=== PATIENT | female | born 1970 | race Caucasian/White ===

== ENCOUNTER 2020-10-14 08:23 | Day surgery (SDC) | payer OTHER ==
[~2020-10-14] VITALS: Ht 162.6 cm; Wt 102.0 kg
[~2020-10-14 08:23] MED LIST: MELO7.5 PO; ZOLP10 PO
--- NOTE | 2020-10-14 10:14 | NUR ---
10/14/20 1013 Shakila Genao V PT STATES SHE IS COMFORTABLE AND DOES NOT NEED ANYTHING AT THIS TIME. CALL LIGHT IS STILL WITHIN REACH.
--- NOTE | 2020-10-14 13:01 | NUR ---
10/14/20 1301 Fadi,Anabella REQUEST A DOCTORS NOTE FOR WORK. DR. DIXON'S OFFICE CALLED AND THEY WILL PREPARE THIS. DENIES PAIN OR NAUSEA. VSS. DRESSING CDI. DC TEACHING DONE. DC HOME WITH ALL BELONGINGS, IS AND POLAR PACK. DC INSTRUCTIONS REPEATED TO GRABIEL FLOWERS AT THE CAR. INFORMED HER TO CALL DR. DIXON OFFICE TO SEE IF DOCTORS NOTE IS AVAILABLE FOR PICKUP.
== END 2020-10-14 12:56 | disposition home or self-care (01) ==
LOC: ORSCSDS 08:23
PROVIDERS: Orthopaedic Surgery
PROC: 0RNK4ZZ Release Left Shoulder Joint, Percutaneous Endoscopic Approach (ICD-10-PCS; principal; 2020-10-14 10:00)
PROC: 0LS44ZZ Reposition Left Upper Arm Tendon, Percutaneous Endoscopic Approach (ICD-10-PCS; principal; 2020-10-14 10:00)
PROC: 0RBK4ZZ Excision of Left Shoulder Joint, Percutaneous Endoscopic Approach (ICD-10-PCS; principal; 2020-10-14 10:00)
PROC: 0LU24KZ Supplement Left Shoulder Tendon with Nonautologous Tissue Substitute, Percutaneous Endoscopic Approach (ICD-10-PCS; principal; 2020-10-14 10:00)
PROC: 0LQ24ZZ Repair Left Shoulder Tendon, Percutaneous Endoscopic Approach (ICD-10-PCS; principal; 2020-10-14 10:00)
DX: M75.112 Incomplete rotator cuff tear or rupture of left shoulder, not specified as traumatic (principal); M75.22 Bicipital tendinitis, left shoulder; M75.42 Impingement syndrome of left shoulder; M19.012 Primary osteoarthritis, left shoulder; I10 Essential (primary) hypertension; Z79.899 Other long term (current) drug therapy
CPT/HCPCS: A9270; C1713; J0171; J0690; J1100; J2250; J2370; J2405; J2704; J2710; J3010; J7120

== ENCOUNTER → 2020-12-24 | Outpatient (CLI) | payer OTHER ==
[~2020-12-24] MED LIST changes: +CYCL10 PO; +IBUP600 PO; +KETO10 PO; +Neurontin 300300 MG PO
[2020-12-27 09:09] LABS: CHLAMYDIA BY NAA Negative (Negative); GONOCOCCUS BY NAA Negative (Negative); TRICH VAG BY NAA Negative (Negative)
[2020-12-28 16:10] LABS: HPV 16 Negative (Negative); HPV 18 Negative (Negative); HPV OTHER HR TYPES Negative (Negative)
== END | disposition home or self-care (01) ==
LOC: LAB SHORT 13:05 → LAB UCHC 13:05
PROVIDERS: Family Medicine
DX: Z12.4 Encounter for screening for malignant neoplasm of cervix (principal)
CPT/HCPCS: 87491; 87591; 87624; 87661; G0123

== ENCOUNTER 2021-02-12 10:26 | Emergency (ER) | payer OTHER ==
[~2021-02-12] VITALS: Ht 162.6 cm; Wt 99.8 kg
[~2021-02-12 10:26] MED LIST changes: -CYCL10 PO; -IBUP600 PO; -KETO10 PO; -Neurontin 300300 MG PO
[2021-02-12] MEDS ORDERED: KETO10 PO (13:17)
[2021-02-12] MEDS ORDERED: Neurontin 300300 MG PO (13:17)
== END 2021-02-12 13:26 | disposition home or self-care (01) ==
LOC: ER 10:26
DX: G56.01 Carpal tunnel syndrome, right upper limb (principal); Z87.891 Personal history of nicotine dependence
CPT/HCPCS: 29125; 73120; 96372-59; 99283-25; A9270; J1885

== ENCOUNTER 2021-04-05 18:16 | Emergency (ER) | payer OTHER ==
[~2021-04-05] VITALS: Ht 162.6 cm; Wt 99.8 kg
[~2021-04-05 18:16] MED LIST changes: +KETO10 PO; +Neurontin 300300 MG PO
[2021-04-05] MEDS ORDERED: IBUP600 PO (20:42)
[2021-04-05] MEDS ORDERED: CYCL10 PO (20:42)
== END 2021-04-06 00:09 | disposition home or self-care (01) ==
LOC: ER 18:16
DX: S39.012A Strain of muscle, fascia and tendon of lower back, initial encounter (principal); Z87.891 Personal history of nicotine dependence; X50.1XXA Overexertion from prolonged static or awkward postures, initial encounter
CPT/HCPCS: 72100; 72131; 96374; 96375; 99284-25; A9270; J1885; J3010

== ENCOUNTER 2021-07-07 07:16 | Day surgery (SDC) | payer OTHER ==
[~2021-07-07] VITALS: Ht 160 cm; Wt 98.6 kg
[~2021-07-07 07:16] MED LIST changes: +CYCL10 PO; +IBUP600 PO
[2021-07-07] MEDS ORDERED: ZOLPIDEM TARTRA10 MG PO (08:02)
[2021-07-07] MEDS ORDERED: MELO7.5 (08:03)
[2021-07-07] MEDS ORDERED: TIZANIDINE HCL PO (08:04)
[2021-07-07] MEDS ORDERED: CYCLOBENZAPRINE 10 MG (08:05)
[2021-07-07] MEDS ORDERED: NEURONTIN300 MG PO (08:05)
--- NOTE | 2021-07-07 10:22 | NUR ---
07/07/21 1022 NEYMAR EASTON CONTINUED DRESSING BUT MULTIPLE SITES COVERED. ELBOW AND WRIST WORK DONE TODAY.
== END 2021-07-07 10:20 | disposition home or self-care (01) ==
LOC: ORSCSDS 07:16
PROVIDERS: Orthopaedic Surgery
PROC: 01S40ZZ Reposition Ulnar Nerve, Open Approach (ICD-10-PCS; principal; 2021-07-07 08:30)
DX: G56.22 Lesion of ulnar nerve, left upper limb (principal); I10 Essential (primary) hypertension; E66.01 Morbid (severe) obesity due to excess calories; Z68.37 Body mass index [BMI] 37.0-37.9, adult; Z79.899 Other long term (current) drug therapy
CPT/HCPCS: J0690; J1100; J1885; J2250; J2405; J2704; J2795; J3010; J7120

== ENCOUNTER → 2021-09-29 | Outpatient (CLI) | payer OTHER ==
[~2021-09-29] MED LIST changes: +CYCLOBENZAPRINE 10 MG; +MELO7.5; +NEURONTIN300 MG PO; +TIZANIDINE HCL PO; +ZOLPIDEM TARTRA10 MG PO
[2021-09-29 19:15] LABS: BASOPHILS ABSOLUTE AUTO 0.05 K/mm3 (0.00-0.23); BASOPHILS PERCENT AUTO 1 % (0-2); EOSINOPHILS ABSOLUTE AUTO 0.08 K/mm3 (0.00-0.68); EOSINOPHILS PERCENT AUTO 1 % (0-6); Hematocrit 35.8 % (33.0-51.0); Hemoglobin 11.8 g/dL (11.5-16.0); IMMATURE GRAN ABSOLUTE AUTO 0.01 K/mm3 (0.00-0.10); IMMATURE GRAN PERCENT AUTO 0 % (0-1); LYMPHOCYTES ABSOLUTE AUTO 1.87 K/mm3 (0.84-5.20); LYMPHOCYTES PERCENT AUTO 21 % (21-46); MONOCYTES ABSOLUTE AUTO 1.06 K/mm3 (0.16-1.47); MONOCYTES PERCENT AUTO 12 % (4-13); Mean Corpuscular HGB 28.2 pg (26.0-34.0); Mean Corpuscular Volume 86 fL (80-100); NEUTROPHILS ABSOLUTE AUTO 5.69 K/mm3 (1.96-9.15); NEUTROPHILS PERCENT AUTO 65 % (41-73); Platelet Count 366 K/mm3 (150-400); RDW Coefficient Variation 14.3 % (11.7-14.2); RDW Standard Deviation 44.8 fL (35.1-46.3); Red Blood Cell Count 4.18 M/mm3 (3.80-5.20); White Blood Cell Count 8.76 K/mm3 (4.00-11.30)
[2021-09-29 19:37] LABS: Alanine Aminotransfer (ALT/SGP 16 U/L (12-78); Albumin, Blood 3.5 g/dL (3.4-5.0); Albumin/Globulin Ratio 0.8 (0.8-1.8); Alk Phos 91 U/L (50-136); Anion Gap 6 mmol/L (6-16); Aspartate Aminotrans (AST/SGOT 11 U/L (12-37); Bilirubin, Total 0.7 mg/dL (0.1-1.0); Blood Urea Nitrogen 13 mg/dL (8-24); Bun/Creatinine Ratio 19.5 (12.0-20.0); CO2, Blood 24 mmol/L (21-32); Chloride, Blood 107 mmol/L (98-108); Creatinine, Blood 0.67 mg/dL (0.40-1.00); Globulin, Blood 4.2 g/dL (2.2-4.0); Glomerular Filtration Rate >60 (60-); Glucose, Blood 90 mg/dL (70-99); Potassium, Blood 3.9 mmol/L (3.5-5.5); Sodium, Blood 137 mmol/L (136-145); Total Protein, Blood 7.7 g/dL (6.4-8.2)
== END | disposition home or self-care (01) ==
LOC: LAB SHORT 17:47
PROVIDERS: Nurse Practitioner Family
DX: Z13.29 Encounter for screening for other suspected endocrine disorder (principal); R07.89 Other chest pain; R10.9 Unspecified abdominal pain
CPT/HCPCS: 80053; 84443; 85025; 87086

== ENCOUNTER 2021-12-19 21:10 | Emergency (ER) | payer OTHER ==
[~2021-12-19] VITALS: Ht 162.6 cm; Wt 99.8 kg
[2021-12-19] MEDS ORDERED: Prinivil10 MG PO (23:04)
[2021-12-19] MEDS ORDERED: LIDO700A20 TOP (23:46)
== END 2021-12-20 00:05 | disposition home or self-care (01) ==
LOC: ER 21:10
DX: S29.012A Strain of muscle and tendon of back wall of thorax, initial encounter (principal); Z87.891 Personal history of nicotine dependence; X58.XXXA Exposure to other specified factors, initial encounter
CPT/HCPCS: 96374; 99283-25; J1885

== ENCOUNTER 2022-01-23 23:38 | Emergency (ER) | payer OTHER ==
[~2022-01-23] VITALS: Ht 162.6 cm; Wt 99.8 kg
[~2022-01-23 23:38] MED LIST changes: +LIDO700A20 TOP; +Prinivil10 MG PO
[2022-01-24] MEDS ORDERED: Prednisone20 MG PO (07:04)
[2022-01-24] MEDS ORDERED: Roxicodone5 MG PO (07:05)
== END 2022-01-24 00:30 | disposition home or self-care (01) ==
LOC: ER 23:38
DX: G56.01 Carpal tunnel syndrome, right upper limb (principal); Z98.890 Other specified postprocedural states
CPT/HCPCS: 29125; 99282-25; A9270

== ENCOUNTER 2022-01-24 05:10 | Emergency (ER) | payer OTHER ==
[~2022-01-24] VITALS: Ht 165.1 cm; Wt 90.7 kg
[2022-01-24] MEDS ORDERED: Prednisone20 MG PO (07:04)
[2022-01-24] MEDS ORDERED: Roxicodone5 MG PO (07:05)
== END 2022-01-24 07:43 | disposition home or self-care (01) ==
LOC: ER 05:10
DX: G56.01 Carpal tunnel syndrome, right upper limb (principal); I10 Essential (primary) hypertension; Z79.899 Other long term (current) drug therapy
CPT/HCPCS: 99282; A9270; J7512

== ENCOUNTER 2022-06-15 22:45 | Emergency (ER) | payer OTHER ==
[~2022-06-15] VITALS: Ht 162.6 cm; Wt 97.4 kg
[~2022-06-15 22:45] MED LIST changes: +Prednisone20 MG PO; +Roxicodone5 MG PO
[2022-06-16] MEDS ORDERED: ZOLPIDEM TARTRA10 MG PO (00:29)
[2022-06-16] MEDS ORDERED: MELO7.5 PO (00:29)
[2022-06-16] MEDS ORDERED: LISI20 PO (00:29)
== END 2022-06-16 00:55 | disposition home or self-care (01) ==
LOC: ER 22:45
DX: G56.01 Carpal tunnel syndrome, right upper limb (principal); I10 Essential (primary) hypertension; Z79.899 Other long term (current) drug therapy; Z79.52 Long term (current) use of systemic steroids; Z98.890 Other specified postprocedural states
CPT/HCPCS: 96372; 99283-25; J1885

== ENCOUNTER 2022-08-15 06:12 | Day surgery (SDC) | payer OTHER ==
[~2022-08-15] VITALS: Ht 162.6 cm; Wt 100.4 kg
[~2022-08-15 06:12] MED LIST changes: +LISI20 PO
== END 2022-08-15 09:12 | disposition home or self-care (01) ==
LOC: ORSCSDS 06:12
PROVIDERS: Orthopaedic Surgery
PROC: 01S40ZZ Reposition Ulnar Nerve, Open Approach (ICD-10-PCS; principal; 2022-08-15 07:30)
PROC: 01N50ZZ Release Median Nerve, Open Approach (ICD-10-PCS; principal; 2022-08-15 07:30)
DX: G56.01 Carpal tunnel syndrome, right upper limb (principal); G56.21 Lesion of ulnar nerve, right upper limb; I10 Essential (primary) hypertension; Z87.891 Personal history of nicotine dependence; Z79.899 Other long term (current) drug therapy
CPT/HCPCS: J0690; J1100; J1885; J2250; J2405; J2704; J2795; J3010; J7120

== ENCOUNTER → 2022-09-14 | Outpatient (CLI) | payer OTHER | LOC: LAB SHORT 12:02 → LAB 12:02 | DX: T81.44XA Sepsis following a procedure, initial encounter (principal) | CPT/HCPCS: 87070; 87075; 87205 ==

== ENCOUNTER 2022-09-27 01:18 | Day surgery (SDC) | payer OTHER | END 2022-09-28 00:03 | disposition home or self-care (01) | LOC: WOUND 01:18 | DX: T81.31XA Disruption of external operation (surgical) wound, not elsewhere classified, initial encounter (principal); G56.11 Other lesions of median nerve, right upper limb; I10 Essential (primary) hypertension | CPT/HCPCS: A9270; G0463 ==

== ENCOUNTER 2022-10-04 00:59 | Day surgery (SDC) | payer OTHER | END 2022-10-04 22:44 | disposition home or self-care (01) | LOC: WOUND 00:59 | DX: G56.11 Other lesions of median nerve, right upper limb (principal); I10 Essential (primary) hypertension; T81.31XD Disruption of external operation (surgical) wound, not elsewhere classified, subsequent encounter | CPT/HCPCS: G0463 ==

== ENCOUNTER 2022-10-11 00:34 | Day surgery (SDC) | payer OTHER | END 2022-10-11 23:14 | disposition home or self-care (01) | LOC: WOUND 00:34 | DX: T81.89XA Other complications of procedures, not elsewhere classified, initial encounter (principal); G56.11 Other lesions of median nerve, right upper limb; I10 Essential (primary) hypertension | CPT/HCPCS: A9270; G0463 ==

== ENCOUNTER → 2022-10-12 | Outpatient (CLI) | payer OTHER ==
[2022-10-12 17:10] LABS: Percent Saturation 19.9 % (15.0-50.0)
== END | disposition home or self-care (01) ==
LOC: LAB SHORT 11:44
PROVIDERS: Nurse Practitioner Family
DX: G25.81 Restless legs syndrome (principal)
CPT/HCPCS: 82607; 82728; 82746; 83540; 83550

== ENCOUNTER 2022-10-18 03:49 | Day surgery (SDC) | payer OTHER | END 2022-10-18 23:09 | disposition home or self-care (01) | LOC: WOUND 03:49 | PROC: 0WCJ0ZZ Extirpation of Matter from Pelvic Cavity, Open Approach (ICD-10-PCS; principal; 2022-10-18) | DX: T81.30XA Disruption of wound, unspecified, initial encounter (principal); S51.001A Unspecified open wound of right elbow, initial encounter; I10 Essential (primary) hypertension; G56.11 Other lesions of median nerve, right upper limb | CPT/HCPCS: A9270; G0463 ==

== ENCOUNTER 2022-10-25 05:22 | Day surgery (SDC) | payer OTHER | END 2022-10-25 23:06 | disposition home or self-care (01) | LOC: WOUND 05:22 | DX: T81.31XA Disruption of external operation (surgical) wound, not elsewhere classified, initial encounter (principal); G56.11 Other lesions of median nerve, right upper limb; I10 Essential (primary) hypertension; S51.001A Unspecified open wound of right elbow, initial encounter | CPT/HCPCS: G0463 ==

== ENCOUNTER 2022-11-01 01:35 | Day surgery (SDC) | payer OTHER | END 2022-11-01 22:56 | disposition home or self-care (01) | LOC: WOUND 01:35 | DX: T81.31XA Disruption of external operation (surgical) wound, not elsewhere classified, initial encounter (principal); I10 Essential (primary) hypertension | CPT/HCPCS: A9270; G0463 ==

== ENCOUNTER 2022-11-08 00:20 | Day surgery (SDC) | payer OTHER | END 2022-11-08 23:39 | disposition home or self-care (01) | LOC: WOUND 00:20 | DX: T81.31XA Disruption of external operation (surgical) wound, not elsewhere classified, initial encounter (principal); G56.11 Other lesions of median nerve, right upper limb; I10 Essential (primary) hypertension; S51.001D Unspecified open wound of right elbow, subsequent encounter | CPT/HCPCS: A9270; G0463 ==

== ENCOUNTER 2022-11-22 08:00 | Day surgery (SDC) | payer OTHER | END 2022-11-22 23:59 | disposition home or self-care (01) | LOC: WOUND 08:00 | DX: T81.32XA Disruption of internal operation (surgical) wound, not elsewhere classified, initial encounter (principal); G56.11 Other lesions of median nerve, right upper limb; I10 Essential (primary) hypertension | CPT/HCPCS: G0463 ==

== ENCOUNTER 2022-12-07 01:39 | Day surgery (SDC) | payer OTHER | END 2022-12-07 22:48 | disposition home or self-care (01) | LOC: WOUND 01:39 | DX: G56.11 Other lesions of median nerve, right upper limb (principal); T81.31XD Disruption of external operation (surgical) wound, not elsewhere classified, subsequent encounter; I10 Essential (primary) hypertension | CPT/HCPCS: G0463 ==

== ENCOUNTER 2023-05-21 08:09 | Day surgery (SDC) | payer OTHER ==
[~2023-05-21] VITALS: Ht 162.6 cm; Wt 99.8 kg
--- NOTE | 2023-05-21 10:25 | NUR ---
05/21/23 Calista5 Fatoumata Liu 20ML OF ROPIVACAINE 0.5% MIXED AND VERIFIED WITH 0.1ML OF EPI (1MG/ML) TO MAKE ROPIVACAINE 0.5% WITH EPI 1:200,000 FOR [facility]JECTION AT [facility] BY DR MOELLER.
--- NOTE | 2023-05-21 11:03 | NUR ---
05/21/23 1103 NEYMAR EASTON PT SLEEPY/SHALLOW BREATHS ON ADMIT TO PACU. O2 @ 10L VIA FACE TENT- O2 DIPPED TO 91%. CURRENTLY 100% ON 10L. WILL DECREASE TO 5L "TRIAL" PT CURENTLY SLEEPING/SNORING. SOME POSSIBLE RONCHI INITIALLY. PT WAS ABLE TO COUGH W/O DIFF. THIS DID NOT GET RID OF SOUND. WILL LISTEN AGAIN TO LUNGS IN SDU.
--- NOTE | 2023-05-21 11:26 | NUR ---
05/21/23 1126 NEYMAR EASTON STARTED FOR WHEEZING. PT STATES PAIN IS CLIMBING. 01/15. WILLL GIVE SOMETHING IV WELL PO MED.
[2023-05-21 11:49] VITALS: BP 115/70
== END 2023-05-21 12:08 | disposition home or self-care (01) ==
LOC: ORSCSDS 08:09
PROVIDERS: Orthopaedic Surgery
PROC: 0QP104Z Removal of Internal Fixation Device from Sacrum, Open Approach (ICD-10-PCS; principal; 2023-05-21 10:00)
DX: T84.84XA Pain due to internal orthopedic prosthetic devices, implants and grafts, initial encounter (principal); I10 Essential (primary) hypertension; E66.9 Obesity, unspecified; Z68.37 Body mass index [BMI] 37.0-37.9, adult; Z79.899 Other long term (current) drug therapy
CPT/HCPCS: A9270; J0171; J0690; J1885; J2250; J2704; J2795; J3010; J3370; J7120

== ENCOUNTER → 2023-08-10 | Outpatient (CLI) | payer OTHER ==
[2023-08-10 19:30] LABS: BASOPHILS ABSOLUTE AUTO 0.04 K/mm3 (0.00-0.23); BASOPHILS PERCENT AUTO 1 % (0-2); EOSINOPHILS ABSOLUTE AUTO 0.13 K/mm3 (0.00-0.68); EOSINOPHILS PERCENT AUTO 2 % (0-6); Hematocrit 39.4 % (33.0-51.0); Hemoglobin 13.5 g/dL (11.5-16.0); IMMATURE GRAN ABSOLUTE AUTO 0.01 K/mm3 (0.00-0.10); IMMATURE GRAN PERCENT AUTO 0 % (0-1); LYMPHOCYTES PERCENT AUTO 28 % (21-46); MONOCYTES ABSOLUTE AUTO 0.89 K/mm3 (0.16-1.47); MONOCYTES PERCENT AUTO 11 % (4-13); Mean Corpuscular HGB 32.3 pg (26.0-34.0); Mean Corpuscular HGB Conc 34.3 g/dL (31.5-36.5); Mean Corpuscular Volume 94 fL (80-100); Mean Platelet Volume 9.8 fL (9.1-12.4); NEUTROPHILS ABSOLUTE AUTO 4.66 K/mm3 (1.96-9.15); NEUTROPHILS PERCENT AUTO 59 % (41-73); Platelet Count 257 K/mm3 (150-400); RDW Standard Deviation 44.8 fL (35.1-46.3); Red Blood Cell Count 4.18 M/mm3 (3.80-5.20); White Blood Cell Count 7.93 K/mm3 (4.00-11.30)
[2023-08-10 20:17] LABS: Anion Gap 4 mmol/L (6-16); Blood Urea Nitrogen 16 mg/dL (8-24); Bun/Creatinine Ratio 19.3 (12.0-20.0); CO2, Blood 29 mmol/L (21-32); Calcium, Blood 9.3 mg/dL (8.5-10.1); Chloride, Blood 108 mmol/L (98-108); Cholesterol 162 mg/dL (50-200); Creatinine, Blood 0.83 mg/dL (0.40-1.00); Glomerular Filtration Rate 85 (60-); Glucose, Blood 96 mg/dL (70-99); HDL Cholesterol 54 mg/dL (>39); LDL/HDL RATIO 1.5; Low Density Lipoprotein Chol 81 mg/dL (0-110); Potassium, Blood 3.8 mmol/L (3.5-5.5); Sodium, Blood 141 mmol/L (136-145); Triglycerides 135 mg/dL (30-160); Very Low Density Lipoprot Chol 27 mg/dL (6-32)
== END | disposition home or self-care (01) ==
LOC: LAB SHORT 18:51 → LAB 18:51
PROVIDERS: Nurse Practitioner Family
DX: E78.5 Hyperlipidemia, unspecified (principal); I10 Essential (primary) hypertension; R73.03 Prediabetes
CPT/HCPCS: 80048; 80061; 83036; 85025

== ENCOUNTER 2024-01-25 14:19 | Emergency (ER) | payer OTHER ==
[~2024-01-25] VITALS: Ht 162.6 cm; Wt 95.2 kg
[2024-01-25 14:30] VITALS: BP 135/108
== END 2024-01-25 15:50 | disposition home or self-care (01) ==
LOC: ER 14:19
DX: S63.613A Unspecified sprain of left middle finger, initial encounter (principal); Z87.891 Personal history of nicotine dependence; I10 Essential (primary) hypertension; Z79.899 Other long term (current) drug therapy; W01.0XXA Fall on same level from slipping, tripping and stumbling without subsequent striking against object, initial encounter
CPT/HCPCS: 73130; 99283-25

== ENCOUNTER → 2024-02-12 | Outpatient (CLI) | payer OTHER ==
[2024-02-12 15:29] LABS: BASOPHILS ABSOLUTE AUTO 0.04 K/mm3 (0.00-0.23); BASOPHILS PERCENT AUTO 1 % (0-2); EOSINOPHILS ABSOLUTE AUTO 0.14 K/mm3 (0.00-0.68); EOSINOPHILS PERCENT AUTO 2 % (0-6); Hematocrit 40.6 % (33.0-51.0); IMMATURE GRAN ABSOLUTE AUTO 0.02 K/mm3 (0.00-0.10); IMMATURE GRAN PERCENT AUTO 0 % (0-1); LYMPHOCYTES ABSOLUTE AUTO 1.65 K/mm3 (0.84-5.20); LYMPHOCYTES PERCENT AUTO 20 % (21-46); MONOCYTES ABSOLUTE AUTO 0.78 K/mm3 (0.16-1.47); MONOCYTES PERCENT AUTO 9 % (4-13); Mean Corpuscular HGB 31.8 pg (26.0-34.0); Mean Corpuscular HGB Conc 34.5 g/dL (31.5-36.5); Mean Corpuscular Volume 92 fL (80-100); Mean Platelet Volume 9.8 fL (9.1-12.4); NEUTROPHILS ABSOLUTE AUTO 5.83 K/mm3 (1.96-9.15); NEUTROPHILS PERCENT AUTO 69 % (41-73); Platelet Count 288 K/mm3 (150-400); RDW Coefficient Variation 13.2 % (11.7-14.2); RDW Standard Deviation 44.6 fL (35.1-46.3); White Blood Cell Count 8.46 K/mm3 (4.00-11.30)
[2024-02-12 16:46] LABS: Albumin, Blood 3.6 g/dL (3.4-5.0); Albumin/Globulin Ratio 0.9 (0.8-1.8); Bilirubin, Total 0.7 mg/dL (0.1-1.0); Bun/Creatinine Ratio 28.2 (12.0-20.0); Calcium, Blood 9.3 mg/dL (8.5-10.1); Creatinine, Blood 0.64 mg/dL (0.40-1.00); Globulin, Blood 4.1 g/dL (2.2-4.0); Potassium, Blood 4.4 mmol/L (3.5-5.5); Total Protein, Blood 7.7 g/dL (6.4-8.2)
== END | disposition home or self-care (01) ==
LOC: LAB SHORT 11:27 → LAB 11:27
PROVIDERS: Nurse Practitioner Family
DX: I10 Essential (primary) hypertension (principal)
CPT/HCPCS: 80053; 85025

== ENCOUNTER → 2024-03-19 | Outpatient (CLI) | payer OTHER ==
[2024-03-19 18:19] LABS: Bun/Creatinine Ratio 32.5 (12.0-20.0); Calcium, Blood 9.5 mg/dL (8.5-10.1); Creatinine, Blood 0.89 mg/dL (0.40-1.00); Potassium, Blood 4.1 mmol/L (3.5-5.5)
== END ==
LOC: LAB SHORT 15:09 → LAB 15:09
PROVIDERS: Nurse Practitioner Family
DX: I10 Essential (primary) hypertension (principal)
CPT/HCPCS: 80048

== ENCOUNTER 2024-03-29 11:07 | Emergency (ER) | payer OTHER ==
[~2024-03-29] VITALS: Ht 162.6 cm; Wt 93.4 kg
[2024-03-29 11:43] VITALS: BP 130/90
[2024-03-29] MEDS ORDERED: HYDROcodone 5-APAP 325 TAB PO ONE (12:55)
[2024-03-29] MEDS ORDERED: Ketorolac Tromethamine 30mg Vial IM ONE (12:55)
== END 2024-03-29 14:45 | disposition home or self-care (01) ==
LOC: ER 11:07
DX: M79.672 Pain in left foot (principal); I10 Essential (primary) hypertension; Z79.899 Other long term (current) drug therapy; Z87.891 Personal history of nicotine dependence
CPT/HCPCS: 73630; 96372; 99283-25; A9270; J1885

== ENCOUNTER → 2024-07-01 | Outpatient (CLI) | payer OTHER ==
[2024-07-02 12:51] LABS: Rheumatoid Factor, Serum Positive (Negative)
[2024-07-02 12:52] LABS: RA, SEMIQUANTITATIVE 128 IU/ml (<8)
[2024-07-03 06:01] LABS: ANTI-NUCLEAR AB ANA,IGG ELISA None Detected (None Detected)
== END | disposition home or self-care (01) ==
LOC: LAB SHORT 16:05 → LAB 16:05
PROVIDERS: Nurse Practitioner Family
DX: M25.50 Pain in unspecified joint (principal)
CPT/HCPCS: 86038; 86430; 86431

== ENCOUNTER → 2024-07-08 | Outpatient (CLI) | payer OTHER ==
[2024-07-08 22:25] LABS: CHOL/HDL RATIO 2.6; Cholesterol 157 mg/dL (50-200); HDL Cholesterol 61 mg/dL (>39); LDL/HDL RATIO 0.9; Low Density Lipoprotein Chol 54 mg/dL (0-110); Triglycerides 208 mg/dL (30-160); Very Low Density Lipoprot Chol 42 mg/dL (6-32)
== END | disposition home or self-care (01) ==
LOC: LAB SHORT 12:57 → LAB 12:57
PROVIDERS: Nurse Practitioner Family
DX: E78.5 Hyperlipidemia, unspecified (principal)
CPT/HCPCS: 80061

== ENCOUNTER → 2024-10-02 | Outpatient (CLI) | payer OTHER ==
[2024-10-02 14:55] LABS: BASOPHILS ABSOLUTE AUTO 0.04 K/mm3 (0.00-0.23); BASOPHILS PERCENT AUTO 0 % (0-2); EOSINOPHILS PERCENT AUTO 1 % (0-6); Hematocrit 38.9 % (33.0-51.0); Hemoglobin 13.4 g/dL (11.5-16.0); IMMATURE GRAN ABSOLUTE AUTO 0.03 K/mm3 (0.00-0.10); IMMATURE GRAN PERCENT AUTO 0 % (0-1); LYMPHOCYTES ABSOLUTE AUTO 2.77 K/mm3 (0.84-5.20); LYMPHOCYTES PERCENT AUTO 29 % (21-46); MONOCYTES ABSOLUTE AUTO 0.98 K/mm3 (0.16-1.47); MONOCYTES PERCENT AUTO 10 % (4-13); Mean Corpuscular HGB 33.3 pg (26.0-34.0); Mean Corpuscular HGB Conc 34.4 g/dL (31.5-36.5); Mean Corpuscular Volume 97 fL (80-100); Mean Platelet Volume 9.2 fL (9.1-12.4); NEUTROPHILS ABSOLUTE AUTO 5.72 K/mm3 (1.96-9.15); NEUTROPHILS PERCENT AUTO 59 % (41-73); Platelet Count 289 K/mm3 (150-400); RDW Coefficient Variation 14.6 % (11.7-14.2); RDW Standard Deviation 50.6 fL (35.1-46.3); Red Blood Cell Count 4.02 M/mm3 (3.80-5.20); White Blood Cell Count 9.64 K/mm3 (4.00-11.30)
[2024-10-02 15:31] LABS: Albumin, Blood 3.6 g/dL (3.4-5.0); Bilirubin, Total 0.5 mg/dL (0.1-1.0); Bun/Creatinine Ratio 31.2 (12.0-20.0); Calcium, Blood 9.4 mg/dL (8.5-10.1); Creatinine, Blood 0.74 mg/dL (0.40-1.00); Globulin, Blood 3.6 g/dL (2.2-4.0); Potassium, Blood 3.7 mmol/L (3.5-5.5); Total Protein, Blood 7.2 g/dL (6.4-8.2)
== END ==
LOC: LAB 13:13 → LAB SHORT 13:13
PROVIDERS: Internal Medicine Rheumatology
DX: M05.79 Rheumatoid arthritis with rheumatoid factor of multiple sites without organ or systems involvement (principal)
CPT/HCPCS: 80053; 85025; 85651

== ENCOUNTER → 2024-12-25 | Outpatient (CLI) | payer OTHER ==
[2024-12-25 19:18] LABS: BASOPHILS ABSOLUTE AUTO 0.05 K/mm3 (0.00-0.23); BASOPHILS PERCENT AUTO 1 % (0-2); EOSINOPHILS ABSOLUTE AUTO 0.12 K/mm3 (0.00-0.68); EOSINOPHILS PERCENT AUTO 1 % (0-6); Hematocrit 38.8 % (33.0-51.0); Hemoglobin 13.2 g/dL (11.5-16.0); IMMATURE GRAN ABSOLUTE AUTO 0.05 K/mm3 (0.00-0.10); IMMATURE GRAN PERCENT AUTO 1 % (0-1); LYMPHOCYTES ABSOLUTE AUTO 2.38 K/mm3 (0.84-5.20); LYMPHOCYTES PERCENT AUTO 25 % (21-46); MONOCYTES ABSOLUTE AUTO 0.96 K/mm3 (0.16-1.47); MONOCYTES PERCENT AUTO 10 % (4-13); Mean Corpuscular HGB 34.4 pg (26.0-34.0); Mean Corpuscular Volume 101 fL (80-100); Mean Platelet Volume 10.4 fL (9.1-12.4); NEUTROPHILS ABSOLUTE AUTO 6.02 K/mm3 (1.96-9.15); NEUTROPHILS PERCENT AUTO 63 % (41-73); Platelet Count 289 K/mm3 (150-400); RDW Coefficient Variation 13.4 % (11.7-14.2); RDW Standard Deviation 49.1 fL (35.1-46.3); Red Blood Cell Count 3.84 M/mm3 (3.80-5.20); White Blood Cell Count 9.58 K/mm3 (4.00-11.30)
[2024-12-25 20:49] LABS: Albumin, Blood 3.5 g/dL (3.4-5.0); Albumin/Globulin Ratio 1.1 (0.8-1.8); Bilirubin, Total 0.5 mg/dL (0.1-1.0); Bun/Creatinine Ratio 24.6 (12.0-20.0); Calcium, Blood 9.3 mg/dL (8.5-10.1); Creatinine, Blood 0.85 mg/dL (0.40-1.00); Globulin, Blood 3.2 g/dL (2.2-4.0); Potassium, Blood 3.6 mmol/L (3.5-5.5); Total Protein, Blood 6.7 g/dL (6.4-8.2)
== END ==
LOC: LAB 17:52 → LAB SHORT 17:52
PROVIDERS: Internal Medicine Rheumatology
DX: D50.8 Other iron deficiency anemias (principal); D64.9 Anemia, unspecified; M05.79 Rheumatoid arthritis with rheumatoid factor of multiple sites without organ or systems involvement
CPT/HCPCS: 80053; 85025; 85651

== ENCOUNTER → 2025-01-29 | Outpatient (CLI) | payer OTHER ==
[2025-01-29 14:34] LABS: BASOPHILS ABSOLUTE AUTO 0.06 K/mm3 (0.00-0.23); BASOPHILS PERCENT AUTO 1 % (0-2); EOSINOPHILS PERCENT AUTO 1 % (0-6); Hematocrit 39.3 % (33.0-51.0); Hemoglobin 13.6 g/dL (11.5-16.0); IMMATURE GRAN ABSOLUTE AUTO 0.02 K/mm3 (0.00-0.10); IMMATURE GRAN PERCENT AUTO 0 % (0-1); LYMPHOCYTES PERCENT AUTO 28 % (21-46); MONOCYTES ABSOLUTE AUTO 0.98 K/mm3 (0.16-1.47); MONOCYTES PERCENT AUTO 10 % (4-13); Mean Corpuscular HGB 33.9 pg (26.0-34.0); Mean Corpuscular HGB Conc 34.6 g/dL (31.5-36.5); Mean Corpuscular Volume 98 fL (80-100); Mean Platelet Volume 10.3 fL (9.1-12.4); NEUTROPHILS ABSOLUTE AUTO 5.83 K/mm3 (1.96-9.15); NEUTROPHILS PERCENT AUTO 60 % (41-73); Platelet Count 296 K/mm3 (150-400); RDW Coefficient Variation 13.2 % (11.7-14.2); RDW Standard Deviation 46.8 fL (35.1-46.3); Red Blood Cell Count 4.01 M/mm3 (3.80-5.20); White Blood Cell Count 9.69 K/mm3 (4.00-11.30)
[2025-01-29 15:09] LABS: Albumin, Blood 3.5 g/dL (3.4-5.0); Albumin/Globulin Ratio 1.2 (0.8-1.8); Bilirubin, Total 0.4 mg/dL (0.1-1.0); Bun/Creatinine Ratio 24.5 (12.0-20.0); Calcium, Blood 8.9 mg/dL (8.5-10.1); Creatinine, Blood 0.69 mg/dL (0.40-1.00); Globulin, Blood 2.9 g/dL (2.2-4.0); Potassium, Blood 4.2 mmol/L (3.5-5.5); Total Protein, Blood 6.4 g/dL (6.4-8.2)
== END ==
LOC: LAB SHORT 11:07 → LAB 11:07
PROVIDERS: Internal Medicine Rheumatology
DX: M05.79 Rheumatoid arthritis with rheumatoid factor of multiple sites without organ or systems involvement (principal)
CPT/HCPCS: 80053; 85025; 85651

== ENCOUNTER 2025-02-04 08:20 | Day surgery (SDC) | payer OTHER ==
[~2025-02-04] VITALS: Ht 165.1 cm; Wt 88.0 kg
[~2025-02-04 08:20] MED LIST changes: +EPINEPhrine HCl 1 MG/ML 1ML Amp ONE; +Lactated Ringer's 1,000 ML IV ONE; +Lidocaine 1%-Epineph 1:200000 30 ML SDV ONE; +Midazolam HCl 1MG / ML 2ML Vial ONE; +propofoL 20 ML IV ONE
[2025-02-04] MEDS ORDERED: CeFAZolin Sodium 2,000 MG VIAL ONE (08:25)
[2025-02-04] MEDS ORDERED: FentaNYL Citrate 50 MCG/ML 2 ML Injection ONE ×2 (08:28→10:09)
[2025-02-04] MEDS ORDERED: METTREX2.5 PO (08:36)
[2025-02-04] MEDS ORDERED: VENL75ER PO (08:36)
[2025-02-04] MEDS ORDERED: PREDNISONE1 MG PO (08:36)
[2025-02-04] MEDS ORDERED: ATOR10 PO (08:37)
[2025-02-04] MEDS ORDERED: CELE100 PO (08:37)
[2025-02-04] MEDS ORDERED: FOLI1 PO (08:37)
[2025-02-04] MEDS ORDERED: OMEP20ER PO (08:37)
[2025-02-04] MEDS ORDERED: TIZA4 PO (08:38)
[2025-02-04] MEDS ORDERED: Lactated Ringer's 1,000 ML IV ONE (08:58)
--- NOTE | 2025-02-04 09:09 | NUR ---
02/04/25 0909 HERIBERTO GALINDO PT RESTING ON GURNEY, RAILS UP, IN LOW POSITION, BRAKES LOCKED, CALL LIGHT IN REACH, DENIES NEEDS.
[2025-02-04] MEDS ORDERED: Ketorolac Tromethamine 30mg Vial ONE (09:27)
[2025-02-04] MEDS ORDERED: Ondansetron HCl 2 MG / ML 2ML Vial ONE (09:27)
[2025-02-04] MEDS ORDERED: Dexamethasone Sod Phos 10 MG/ML 1ML VIAL ONE (09:27)
--- NOTE | 2025-02-04 10:17 | NUR ---
02/04/25 Bradford Wong FENTANYL 25MCG GIVEN IV AT 1015 FOR 5/10 PAIN TO LEFT KNEE
[2025-02-04 10:42] VITALS: BP 145/86
[2025-02-04] MEDS ORDERED: OxyCODONE HCL 5 MG TAB ONE (10:55)
--- NOTE | 2025-02-04 11:02 | NUR ---
02/04/25 1102 Bradford Mcdaniel OXYCODONE 5MG PO GIVEN AT 1100 FOR 3/10 LEFT KNEE PAIN
== END 2025-02-04 11:35 | disposition home or self-care (01) ==
LOC: ORSCSDS 08:20
PROVIDERS: Orthopaedic Surgery
PROC: 0SBD4ZZ Excision of Left Knee Joint, Percutaneous Endoscopic Approach (ICD-10-PCS; principal; 2025-02-04 09:45)
DX: S83.242A Other tear of medial meniscus, current injury, left knee, initial encounter (principal); E78.5 Hyperlipidemia, unspecified; I10 Essential (primary) hypertension; F41.9 Anxiety disorder, unspecified; Z87.891 Personal history of nicotine dependence; Z79.899 Other long term (current) drug therapy
CPT/HCPCS: A9270; J0171; J0690; J1100; J1885; J2250; J2405; J2704; J3010; J7120

== ENCOUNTER → 2025-07-13 | Outpatient (CLI) | payer OTHER ==
[~2025-07-13] MED LIST changes: +ATOR10 PO; +CELE100 PO; -EPINEPhrine HCl 1 MG/ML 1ML Amp ONE; +FOLI1 PO; -Lactated Ringer's 1,000 ML IV ONE; -Lidocaine 1%-Epineph 1:200000 30 ML SDV ONE; +METTREX2.5 PO; -Midazolam HCl 1MG / ML 2ML Vial ONE; +OMEP20ER PO; +PREDNISONE1 MG PO; +TIZA4 PO; +VENL75ER PO; -propofoL 20 ML IV ONE
[2025-07-13 13:01] LABS: BASOPHILS ABSOLUTE AUTO 0.05 K/mm3 (0.00-0.23); BASOPHILS PERCENT AUTO 1 % (0-2); EOSINOPHILS ABSOLUTE AUTO 0.08 K/mm3 (0.00-0.68); EOSINOPHILS PERCENT AUTO 1 % (0-6); Hematocrit 39.2 % (33.0-51.0); Hemoglobin 13.7 g/dL (11.5-16.0); IMMATURE GRAN ABSOLUTE AUTO 0.02 K/mm3 (0.00-0.10); IMMATURE GRAN PERCENT AUTO 0 % (0-1); LYMPHOCYTES ABSOLUTE AUTO 1.71 K/mm3 (0.84-5.20); LYMPHOCYTES PERCENT AUTO 24 % (21-46); MONOCYTES ABSOLUTE AUTO 0.91 K/mm3 (0.16-1.47); MONOCYTES PERCENT AUTO 13 % (4-13); Mean Corpuscular HGB Conc 34.9 g/dL (31.5-36.5); Mean Corpuscular Volume 97 fL (80-100); NEUTROPHILS ABSOLUTE AUTO 4.43 K/mm3 (1.96-9.15); NEUTROPHILS PERCENT AUTO 62 % (41-73); NRBC ABSOLUTE 0.00 K/mm3 (0.00-0.02); NRBC Auto 0.0 /100 WBC (0.0-0.2); Platelet Count 295 K/mm3 (150-400); RDW Coefficient Variation 13.2 % (11.7-14.2); RDW Standard Deviation 47.3 fL (35.1-46.3)
[2025-07-13 13:46] LABS: Alanine Aminotransfer (ALT/SGP 24 U/L (12-78); Albumin, Blood 3.8 g/dL (3.4-5.0); Albumin/Globulin Ratio 1.1 (0.8-1.8); Anion Gap 11 mmol/L (3-11); Aspartate Aminotrans (AST/SGOT 15 U/L (12-37); Bilirubin, Total 1.0 mg/dL (0.1-1.0); Blood Urea Nitrogen 16 mg/dL (8-24); CHOL/HDL RATIO 1.8; CO2, Blood 21 mmol/L (21-32); Calcium, Blood 9.6 mg/dL (8.5-10.1); Chloride, Blood 108 mmol/L (98-108); Cholesterol 162 mg/dL (50-200); Creatinine, Blood 0.68 mg/dL (0.40-1.00); Globulin, Blood 3.6 g/dL (2.2-4.0); Glucose, Blood 106 mg/dL (70-99); HDL Cholesterol 89 mg/dL (>39); LDL/HDL RATIO 0.7; Low Density Lipoprotein Chol 58 mg/dL (0-110); Potassium, Blood 4.0 mmol/L (3.5-5.5); Sodium, Blood 136 mmol/L (136-145); Thyroid Stimulating Hormone 0.689 uIU/mL (0.360-4.800); Total Protein, Blood 7.4 g/dL (6.4-8.2); Triglycerides 75 mg/dL (30-160); Very Low Density Lipoprot Chol 15 mg/dL (6-32)
== END ==
LOC: LAB 09:28 → LAB SHORT 09:28
PROVIDERS: Nurse Practitioner Family
DX: E78.5 Hyperlipidemia, unspecified (principal); Z79.899 Other long term (current) drug therapy
CPT/HCPCS: 80053; 80061; 84443; 85025

== ENCOUNTER → 2025-08-03 | Outpatient (CLI) | payer OTHER ==
[2025-08-03 11:09] LABS: BASOPHILS ABSOLUTE AUTO 0.04 K/mm3 (0.00-0.23); BASOPHILS PERCENT AUTO 1 % (0-2); EOSINOPHILS ABSOLUTE AUTO 0.11 K/mm3 (0.00-0.68); EOSINOPHILS PERCENT AUTO 2 % (0-6); Hematocrit 39.6 % (33.0-51.0); Hemoglobin 13.2 g/dL (11.5-16.0); IMMATURE GRAN ABSOLUTE AUTO 0.02 K/mm3 (0.00-0.10); IMMATURE GRAN PERCENT AUTO 0 % (0-1); LYMPHOCYTES ABSOLUTE AUTO 1.89 K/mm3 (0.84-5.20); LYMPHOCYTES PERCENT AUTO 29 % (21-46); MONOCYTES ABSOLUTE AUTO 0.75 K/mm3 (0.16-1.47); MONOCYTES PERCENT AUTO 12 % (4-13); Mean Corpuscular HGB Conc 33.3 g/dL (31.5-36.5); Mean Corpuscular Volume 100 fL (80-100); NEUTROPHILS ABSOLUTE AUTO 3.70 K/mm3 (1.96-9.15); NEUTROPHILS PERCENT AUTO 57 % (41-73); NRBC ABSOLUTE 0.00 K/mm3 (0.00-0.02); NRBC Auto 0.0 /100 WBC (0.0-0.2); Platelet Count 271 K/mm3 (150-400); RDW Coefficient Variation 13.4 % (11.7-14.2); RDW Standard Deviation 49.1 fL (35.1-46.3)
[2025-08-03 12:53] LABS: Alanine Aminotransfer (ALT/SGP 28 U/L (12-78); Albumin, Blood 3.5 g/dL (3.4-5.0); Albumin/Globulin Ratio 1.0 (0.8-1.8); Anion Gap 7 mmol/L (3-11); Aspartate Aminotrans (AST/SGOT 16 U/L (12-37); Bilirubin, Total 0.7 mg/dL (0.1-1.0); Blood Urea Nitrogen 13 mg/dL (8-24); CHOL/HDL RATIO 1.9; CO2, Blood 30 mmol/L (21-32); Calcium, Blood 8.7 mg/dL (8.5-10.1); Chloride, Blood 105 mmol/L (98-108); Cholesterol 174 mg/dL (50-200); Creatinine, Blood 0.76 mg/dL (0.40-1.00); Globulin, Blood 3.5 g/dL (2.2-4.0); Glucose, Blood 84 mg/dL (70-99); HDL Cholesterol 92 mg/dL (>39); LDL/HDL RATIO 0.6; Low Density Lipoprotein Chol 59 mg/dL (0-110); Potassium, Blood 4.0 mmol/L (3.5-5.5); Sodium, Blood 138 mmol/L (136-145); Thyroid Stimulating Hormone 2.120 uIU/mL (0.360-4.800); Total Protein, Blood 7.0 g/dL (6.4-8.2); Triglycerides 113 mg/dL (30-160); Very Low Density Lipoprot Chol 22 mg/dL (6-32)
== END ==
LOC: LAB 09:39 → LAB SHORT 09:39
PROVIDERS: Nurse Practitioner Family
DX: I10 Essential (primary) hypertension (principal); F41.9 Anxiety disorder, unspecified; M05.79 Rheumatoid arthritis with rheumatoid factor of multiple sites without organ or systems involvement; E78.5 Hyperlipidemia, unspecified; Z79.899 Other long term (current) drug therapy
CPT/HCPCS: 80053; 80061; 84443; 85025; 85651

== ENCOUNTER 2025-08-26 23:11 | Emergency (ER) | payer OTHER ==
[~2025-08-26] VITALS: Ht 162.6 cm; Wt 86.2 kg
[2025-08-26] MEDS ORDERED: Ketorolac Tromethamine 30mg Vial IM ONE (23:20)
[2025-08-26 23:42] VITALS: BP 145/101
[2025-08-26] MEDS ORDERED: IBU600 MG PO (23:56)
[2025-08-26] MEDS ORDERED: CYCL10 PO (23:56)
== END 2025-08-27 00:25 | disposition home or self-care (01) ==
LOC: ER 23:11
DX: M25.512 Pain in left shoulder (principal); I10 Essential (primary) hypertension; Z98.890 Other specified postprocedural states; Z87.891 Personal history of nicotine dependence; Z79.1 Long term (current) use of non-steroidal anti-inflammatories (NSAID); Z79.899 Other long term (current) drug therapy
CPT/HCPCS: 73030; 96374; 99283-25; J1885